=== PATIENT | female | born 1955 | race Caucasian/White ===

== ENCOUNTER 2021-04-13 13:24 | Emergency (ER) | payer MEDICARE, OTHER ==
[2021-04-13 15:16] LABS: BUN/CREATININE RATIO 23 (0-10)
[2021-04-13 15:59] LABS: HEMOGLOBIN 12.4 gm/dl (12.3-15.3); RED BLOOD COUNT 4.38 M/UL (4.00-5.10); WHITE BLOOD COUNT 8.6 K/UL (4.5-11.0)
== END 2021-04-13 17:40 | disposition left against medical advice (07) ==
LOC: ER1 13:24 → CDU 17:11 → ER1 17:40
PROVIDERS: Emergency Medicine
DX: R41.82 Altered mental status, unspecified (principal); Z90.710 Acquired absence of both cervix and uterus; Z85.118 Personal history of other malignant neoplasm of bronchus and lung; Z87.891 Personal history of nicotine dependence; Z20.822 Contact with and (suspected) exposure to COVID-19
CPT/HCPCS: 70450; 71045; 80053; 81001; 82140; 82550; 82553; 83690; 83735; 83874; 84100; 84439; 84443; 84484; 85025; 99285; U0002